=== PATIENT | male | born 1955 | race Caucasian/White ===

== ENCOUNTER → 2016-08-15 | Outpatient (CLI) | payer SELFPAY ==
[2016-08-15 11:18] LABS: BUN/CREATININE RATIO 12.5 (6-20); CALCIUM 9.4 mg/dL (8.7-10.7); CHOL/HDL RATIO 4.48 RATIO (0-4.0)
[2016-08-15 12:10] LABS: HEMATOCRIT 47.3 % (42.0-52.0); HEMOGLOBIN 15.9 g/dL (14.0-18.0); MEAN CORPUSCULAR HEMOGLOBIN 29.2 PG (27-31); MEAN CORPUSCULAR HGB CONC 33.6 g/dL (33-37); MEAN CORPUSCULAR VOLUME 86.9 FL (80-90); MEAN PLATELET VOLUME 9.6 FL (7.4-12.2); RED BLOOD COUNT 5.44 10^6/uL (4.70-6.10)
== END ==
LOC: LAB 09:22
PROVIDERS: ATTEND Family Medicine
DX: I10 Essential (primary) hypertension (principal); Z98.61 Coronary angioplasty status; F17.220 Nicotine dependence, chewing tobacco, uncomplicated
CPT/HCPCS: 36415; 80048; 80061; 85027

== ENCOUNTER → 2016-12-13 | Outpatient (CLI) | payer SELFPAY | LOC: LAB 14:30 | PROVIDERS: ATTEND Family Medicine | DX: M79.642 Pain in left hand (principal); M79.89 Other specified soft tissue disorders; F17.200 Nicotine dependence, unspecified, uncomplicated | CPT/HCPCS: 36415; 85379 ==

== ENCOUNTER → 2016-12-15 | Outpatient (CLI) | payer SELFPAY ==
--- NOTE | 2016-12-15 14:39 | DI ---
HISTORY: Left arm swelling. COMPARISON: None available. TECHNIQUE: Sonographic images of the extremity veins were obtained and submitted for interpretation. FINDINGS: No evidence of DVT. Soft tissue edema is seen without focal fluid collections. IMPRESSION: 1. No DVT. 2. Soft tissue edema without focal fluid collections. NOTE: The interpreting Radiologist was not present at the time of ultrasound interrogation.
== END ==
LOC: LAB 11:54 → US 11:54
PROVIDERS: ATTEND Family Medicine
DX: M79.602 Pain in left arm (principal); M79.89 Other specified soft tissue disorders
CPT/HCPCS: 93971

== ENCOUNTER → 2016-12-15 | Outpatient (CLI) | payer SELFPAY ==
--- NOTE | 2016-12-15 08:42 | DI ---
LEFT WRIST, 12/15/2016 7:21 AM: Clinical History: Swelling of the left hand. Previous Exam: None at this facility. AP and lateral views are submitted. There is edema in the subcutaneous fat along the dorsal and ulnar aspect of the distal forearm and wrist. There is no fracture or dislocation. The carpal joint spaces are intact. Reading: Except for the soft tissue swelling as above, the study is normal.
--- NOTE | 2016-12-15 09:05 | DI ---
LEFT HAND, 12/15/2016 7:21 AM: Clinical History: Swelling of the left hand. Previous Exam: None at this facility. 3 views are submitted. There is substantial swelling of the entire left hand both on the dorsal and v olar aspects with extension into the fingers. There is no soft tissue gas or radiopaque foreign body. The joint spaces are mildly narrowed in the MCP, PIP, DIP joints, and the IP joint of the thumb. The re is no periosteal new bone formation. Reading: Diffuse soft tissue swelling of the hand and the fingers without evidence of soft tissue gas or of a radiopaque foreign body. The joint space narrowing of the fingers and common is most likely secondary to osteoarthritis rather than a diffuse involvement of septic arthritis. There is no evidence of per iosteal new bone formation to indicate acute osteomyelitis at this time.
== END ==
LOC: MOB RAD 08:22
PROVIDERS: ATTEND Family Medicine
DX: M79.89 Other specified soft tissue disorders (principal); F17.220 Nicotine dependence, chewing tobacco, uncomplicated
CPT/HCPCS: 73100; 73130